=== PATIENT | male | born 1985 | race Caucasian/White ===

== ENCOUNTER 2023-10-27 14:43 | Emergency (ER) | payer BC ==
--- NOTE | 2023-10-27 15:22 | ED ---
SOB HPI - General Chief Complaint: Recheck/Abnormal Lab/Rx Stated Complaint: Dyspnea-sent from CT Scan Time Seen by Provider: 10/27/23 14:58 Source: patient, RN notes reviewed Mode of arrival: ambulatory Limitations: no limitations - History of Present Illness Initial Comments: This is a 38-year-old male who presents to the emergency department for short ness of breath. Patient states that since early September he's had ongoing shortness of breath, coughing, and congestion. He has been treated for pneumonia twice with 2 rounds of antibiotics and one round of steroids, with no relief in symptoms. Given the progressive symptoms, he had an outpatient CTA of the chest today to evaluate for any signs of a PE, however this was nondiagnostic, and he was sent to the emergency department for further evaluation. Dr. Martinez, pulmonology did also prescribe another round of steroids to be started today, which he has to scrap picker from the pharmacy. Denies any pain in any of the extremities or hx of blood clots. Denies any chest pain. Denies any history of similar symptoms in the past. States that he does have increasing fatigue and feels very weak and short of breath with very low amounts of exertion. MD Complaint: shortness of breath, cough - Related Data Previous Rx's Medication Instructions Recorded CHLORPHEN-HYDROcod 8-10mg/5ml 2.5 ml PO Q12HR PRN #120 ml 10/27/23 [Tussionex] Allergies Allergy/AdvReac Type Severity Reaction Status Date / Time prednisone Allergy Rapid Verified 10/27/23 14:49 Heart Rate Review of Systems ROS Statement: Those systems with pertinent positive or pertinent negative responses have been documented in the HPI. ROS Other: All systems not noted in ROS Statement are negative. Past Medical History Past Medical History: Hypertension History of Any Multi-Drug Resistant Organisms: None Reported Past Surgical History: No Surgical Hx Reported Past Psychological History: No Psychological Hx Reported Smoking Status: Never smoker Past Alcohol Use History: Occasional Past Drug Use History: None Reported General Exam Limitations: no limitations General appearance: alert, in no apparent distress Head exam: Present: atraumatic, normocephalic, normal inspection Respiratory exam: Present: decreased breath sounds, prolonged expiratory. Absent: wheezes, rales, rhonchi Cardiovascular Exam: Present: normal rhythm, tachycardia Neurological exam: Present: alert, oriented X3, CN II-XII intact Psychiatric exam: Present: normal affect, normal mood Skin exam: Present: warm, dry, intact, normal color. Absent: rash Course Vital Signs 10/27/23 10/27/23 10/27/23 14:46 16:32 16:40 Temperature 97.9 F Pulse Rate 111 H 104 H 104 H Respiratory 24 16 18 Rate Blood Pressure 162/85 O2 Sat by Pulse 96 Oximetry 10/27/23 17:11 Temperature 97.8 F Pulse Rate 98 Respiratory 18 Rate Blood Pressure 150/78 O2 Sat by Pulse 98 Oximetry Medical Decision Making - Medical Decision Making This is a 38-year-old male who presents to the emergency department for shortness of breath and an abnormal computed tomography scan. Was pt. sent in by a medical professional or institution? @ -No Did you speak to anyone other than the patient for history? @ -No Did you review nursing and triage notes? @ -Yes, and I agree, it is accurate with regards to the patient's symptoms. Were old charts reviewed? @ -CTA of the chest obtained on an outpatient basis today which was nondiagnostic for pulmonary embolus due to bolus timing. No obvious central embolism was identified. Differential Diagnosis? @ -Differential Dyspnea: Coronary syndrome, arrhythmia, tamponade, asthma, COPD, pulmonary embolism, pneumonia, pneumothorax, pulmonary effusion, anaphylaxis, diabetic ketoacidosis, flailed chest, pulmonary contusion, diaphragmatic rupture, anemia, neuromuscular, this is not meant to be an all-inclusive list. EKG interpreted by me (3pts min.)? @ -EKG interpreted by me demonstrating the following: Sinus tachycardia. Ventricular rate 106 bpm, VT interval 174 ms, QRS duration 93 ms, QTC 368 ms. X-rays interpreted by me (1pt min.)? @ -Not obtained CT interpreted by me (1pt min.)? @ -Not obtained - done earlier today U/S interpreted by me (1pt. min.)? @ -Not obtained What testing was considered but not performed? (CT, X-rays, U/S, labs)? Why? @ -None What meds were considered but not given? Why? @ -None Did you discuss the management of the patient with other professionals? @ -No Did you reconcile home meds? @ -No Was smoking cessation discussed for >3mins.? @ -No Was critical care preformed (if so, how long)? @ -No Were there social determinants of health that impacted care today? How? (Homelessness, low income, unemployed, alcoholism, drug addiction, transportation, low edu. Level, literacy, decrease access to med. care, care home, rehab)? @ -No Was there de-escalation of care discussed even if they declined? (Discuss DNR or withdrawal of care, Hospice)? @ -No What co-morbidities impacted this encounter? (DM, HTN, Smoking, COPD, CAD, Cancer, CVA, Hep., AIDS, mental health diagnosis, sleep apnea, morbid obesity)? @ -HTN, morbid obesity Was patient admitted / discharged? @ -Discharged. Lab work obtained and found to be unremarkable. D-dimer negative, troponin negative, and BNP is negative. COVID, influenza, and RSV testing were negative. Discussed with the patient that given these negative lab values, a PE would be very unlikely despite the nondiagnostic scan. Duoneb breathing treatment administered without significant relief in symptoms. Advised he scrap picker the steriod prescribed by Dr. Martinez and begin taking it as prescribed. He was given a prescription for Tussionex for management of his cough. Advised that this may make him drowsy. Patient discharged home in stable condition. Advised he follow up with his primary care provider and pulmonology. Undiagnosed new problem with uncertain prognosis? @ -None Drug Therapy requiring intensive monitoring for toxicity (Heparin, Nitro, Insul in, Cardizem)? @ -None Were any procedures done? @ -None Diagnosis/symptom? @ -Dyspnea, cough Acute, or Chronic, or Acute on Chronic? @ -Acute Uncomplicated (without systemic symptoms) or Complicated (systemic symptoms)? @ -Uncomplicated Side effects of treatment? @ -None Exacerbation, Progression, or Severe Exacerbation] @ -Not applicable Poses a threat to life or bodily function? @ -No Return precautions reviewed in depth, the patient is instructed to return to the emergency department with any new, worsening, or concerning symptoms. Patient verbalized understanding. This case was discussed in detail with the attending ED physician, Dr. Escobedo. Presentation, findings, and treatment plan discussed in detail as well. - Lab Data Result diagrams: 10/27/23 15:17 10/27/23 15:17 Lab Results 10/27/23 10/27/23 10/27/23 Range/Units 15:17 15:17 15:17 WBC 10.1 (3.8-10.6) k/uL RBC 4.67 (4.30-5.90) m/uL Hgb 14.2 (13.0-17.5) gm/dL Hct 41.1 (39.0-53.0) % MCV 88.0 (80.0-100.0) fL MCH 30.5 (25.0-35.0) pg MCHC 34.7 (31.0-37.0) g/dL RDW 12.7 (11.5-15.5) % Plt Count 258 (150-450) k/uL MPV 7.1 Neutrophils % 63 % Lymphocytes % 26 % Monocytes % 6 % Eosinophils % 3 % Basophils % 1 % Neutrophils # 6.4 (1.3-7.7) k/uL Lymphocytes # 2.6 (1.0-4.8) k/uL Monocytes # 0.6 (0-1.0) k/uL Eosinophils # 0.3 (0-0.7) k/uL Basophils # 0.1 (0-0.2) k/uL PT 10.4 (10.0-12.5) sec INR 0.9 (<1.2) APTT 25.4 (22.0-30.0) sec D-Dimer 0.31 (<0.60) mg/L FEU Sodium 137 (137-145) mmol/L Potassium 4.3 (3.5-5.1) mmol/L Chloride 105 (98-107) mmol/L Carbon Dioxide 20 L (22-30) mmol/L Anion Gap 12 mmol/L BUN 17 (9-20) mg/dL Creatinine 0.62 L (0.66-1.25) mg/dL Est GFR (CKD-EPI)AfAm >90 (>60 ml/min/1.73 sqM) Est GFR (CKD-EPI)NonAf >90 (>60 ml/min/1.73 sqM) Glucose 114 H (74-99) mg/dL Plasma Lactic Acid Hamzah (0.7-2.0) mmol/L Calcium 9.9 (8.4-10.2) mg/dL Total Bilirubin 0.6 (0.2-1.3) mg/dL AST 23 (17-59) U/L ALT 35 (4-49) U/L Alkaline Phosphatase 67 (38-126) U/L Troponin I (0.000-0.034) ng/mL NT-Pro-B Natriuret Pep <20 pg/mL Total Protein 8.2 (6.3-8.2) g/dL Albumin 4.7 (3.5-5.0) g/dL Influenza Type A (PCR) (Not Detectd) Influenza Type B (PCR) (Not Detectd) RSV (PCR) (Not Detectd) SARS-CoV-2 (PCR) (Not Detectd) 10/27/23 10/27/23 10/27/23 Range/Units 15:17 15:17 15:38 WBC (3.8-10.6) k/uL RBC (4.30-5.90) m/uL Hgb (13.0-17.5) gm/dL Hct (39.0-53.0) % MCV (80.0-100.0) fL MCH (25.0-35.0) pg MCHC (31.0-37.0) g/dL RDW (11.5-15.5) % Plt Count (150-450) k/uL MPV Neutrophils % % Lymphocytes % % Monocytes % % Eosinophils % % Basophils % % Neutrophils # (1.3-7.7) k/uL Lymphocytes # (1.0-4.8) k/uL Monocytes # (0-1.0) k/uL Eosinophils # (0-0.7) k/uL Basophils # (0-0.2) k/uL PT (10.0-12.5) sec INR (<1.2) APTT (22.0-30.0) sec D-Dimer (<0.60) mg/L FEU Sodium (137-145) mmol/L Potassium (3.5-5.1) mmol/L Chloride (98-107) mmol/L Carbon Dioxide (22-30) mmol/L Anion Gap mmol/L BUN (9-20) mg/dL Creatinine (0.66-1.25) mg/dL Est GFR (CKD-EPI)AfAm (>60 ml/min/1.73 sqM) Est GFR (CKD-EPI)NonAf (>60 ml/min/1.73 sqM) Glucose (74-99) mg/dL Plasma Lactic Acid Hamzah 2.0 (0.7-2.0) mmol/L Calcium (8.4-10.2) mg/dL Total Bilirubin (0.2-1.3) mg/dL AST (17-59) U/L ALT (4-49) U/L Alkaline Phosphatase (38-126) U/L Troponin I <0.012 (0.000-0.034) ng/mL NT-Pro-B Natriuret Pep pg/mL Total Protein (6.3-8.2) g/dL Albumin (3.5-5.0) g/dL Influenza Type A (PCR) Not Detected (Not Detectd) Influenza Type B (PCR) Not Detected (Not Detectd) RSV (PCR) Not Detected (Not Detectd) SARS-CoV-2 (PCR) Not Detected (Not Detectd) - Radiology Data Radiology results: report reviewed, image reviewed Disposition Clinical Impression: Dyspnea, Cough Disposition: HOME SELF-CARE Instructions (If sedation given, give patient instructions): Dyspnea (ED), Acute Cough (ED) Additional Instructions: Return to the emergency department with any new, worsening, or concerning symptoms. You can take the cough medication twice daily. This does contain hydrocodone, which is an effective cough suppressant. Be aware that this may make you drowsy. Follow up with your primary care provider in 1-[address] Martinez. Prescriptions: CHLORPHEN-HYDROcod 8-10mg/5ml [Tussionex] 2.5 ml PO Q12HR PRN #120 ml PRN Reason: Cough Is patient prescribed a controlled substance at d/c from ED?: Yes When asked, does pt state using other controlled substances?: No If prescribed controlled substance>3 days was MAPS reviewed?: Prescribed <3 Days Referrals: Celina Lancaster MD [Primary Care Provider] - 1-2 days Time of Disposition: 16:31
[2023-10-27 15:27] LABS: Basophils # (A) 0.1 k/uL (0-0.2); Basophils % (A) 1 %; Eosinophils # (A) 0.3 k/uL (0-0.7); Eosinophils % (A) 3 %; HCT 41.1 % (39.0-53.0); HGB 14.2 gm/dL (13.0-17.5); Lymphocytes # (A) 2.6 k/uL (1.0-4.8); Lymphocytes % (A) 26 %; MCH 30.5 pg (25.0-35.0); MCHC 34.7 g/dL (31.0-37.0); Mean Platelet Volume 7.1; Monocytes # (A) 0.6 k/uL (0-1.0); Monocytes % (A) 6 %; Neutrophils # (A) 6.4 k/uL (1.3-7.7); Neutrophils % (A) 63 %; Platelet Count 258 k/uL (150-450); RBC 4.67 m/uL (4.30-5.90); RDW 12.7 % (11.5-15.5); WBC 10.1 k/uL (3.8-10.6)
[2023-10-27 15:40] LABS: ALT 35 U/L (4-49); AST 23 U/L (17-59); African American GFR (CKD) >90 (>60 ml/min/1.73 sqM); Albumin 4.7 g/dL (3.5-5.0); Alkaline Phosphatase 67 U/L (38-126); Anion Gap 12 mmol/L; Blood Urea Nitrogen 17 mg/dL (9-20); Calcium 9.9 mg/dL (8.4-10.2); Carbon Dioxide 20 mmol/L (22-30); Chloride 105 mmol/L (98-107); Glucose 114 mg/dL (74-99); Non-African American GFR(CKD) >90 (>60 ml/min/1.73 sqM); Potassium 4.3 mmol/L (3.5-5.1); Sodium 137 mmol/L (137-145); Total Bilirubin 0.6 mg/dL (0.2-1.3); Total Protein 8.2 g/dL (6.3-8.2)
[2023-10-27 15:44] LABS: INR 0.9 (<1.2); Partial Thromboplastin Time 25.4 sec (22.0-30.0); Prothrombin Time 10.4 sec (10.0-12.5)
[2023-10-27 15:48] LABS: NT-Pro-B-Type Natriuretic Pept <20 pg/mL
[2023-10-27] MEDS: IPRATROPIUM-ALBUTEROL 3 ML NEB INHALATION STA (16:32)
[2023-10-27 16:59] VITALS: RESP 18
[2023-10-27] MEDS: methylPREDNISolone SOD SUCCI 125 MG/2 ML VIAL IV STA (17:01)
[2023-10-27 17:26] VITALS: BP 150/78; PULSE 98; TEMP 97.8
== END 2023-10-27 17:11 | disposition home or self-care (01) ==
LOC: EC 14:43
DX: R60.0 Localized edema (principal); R05.9 Cough, unspecified; R00.0 Tachycardia, unspecified; I10 Essential (primary) hypertension; Z20.822 Contact with and (suspected) exposure to COVID-19; Z88.8 Allergy status to other drugs, medicaments and biological substances
CPT/HCPCS: 36415; 94640; 93005; 85379; 83880; 80053; 83605; 84484; 85025; 85610; 85730; 87636; 99283; 96374; J2930

== ENCOUNTER → 2023-10-27 | Outpatient (CLI) | payer BC ==
--- NOTE | 2023-10-27 14:32 | CT ---
EXAMINATION TYPE: CT angio chest DATE OF EXAM: 10/27/2023 COMPARISON: HISTORY: Dyspnea CT DLP: 920.60 mGycm CONTRAST: CT chest with contrast and 3D reconstruction with MIP imaging is performed without and with IV Contra st, patient injected with 100 ml mL of Isovue 370. Contrast-enhanced CT of the chest was performed through the course of the pulmonary arteries with esha g and mediastinal window settings submitted. 3D reconstruction with MIP imaging was also performed. PULMONARY ARTERIES: Examination is essentially nondiagnostic given poor timing of the contrast bolus. Large central embolus is not identified with absolute certainty. LUNGS: The lungs are clear and free of infiltrate. No evidence for atelectasis. No pulmonary nodule or mass is detected. No pleural effusion. MEDIASTINUM: Thoracic aorta is of normal caliber. The heart is mildly enlarged. No evidence for me diastinal mass. No mediastinal lymph nodes greater than 1cm. HILAR STRUCTURES: No evidence for mass. No hilar lymph nodes greater than 1 cm. UPPER ABDOMEN: No significant abnormality is seen. IMPRESSION: 1. Examination is essentially nondiagnostic given poor timing of the contrast bolus. Large central e mbolus is not identified with absolute certainty.
== END | disposition home or self-care (01) ==
LOC: RADCTMAIN 13:40
PROVIDERS: ATTEND Internal Medicine
DX: R06.09 Other forms of dyspnea (principal)
CPT/HCPCS: 71275; Q9967